=== PATIENT | female | born 1935 | race Caucasian/White ===

== ENCOUNTER 2016-07-29 00:33 | Day surgery (SDC) | payer MEDICARE ==
[~2016-07-29] VITALS: Ht 165.1 cm; Wt 78.0 kg
[~2016-07-29 00:33] MED LIST: DULO20CA18 PO; LEVO75TA4 PO; MULT-1018 PO; PANT40TA2 PO; TAMS0.4C98 PO
[2016-07-29] MEDS ORDERED: fentaNYL-PF 50 mCg/mL 2 mL Inj IVPUSH PRN (06:00)
[2016-07-29] MEDS ORDERED: Sodium Chloride LOK Flush 10 mL Syringe IV PRN (06:00)
[2016-07-29 09:21] VITALS: BP 146/75; PULSE 69; RESP 16; O2SAT 96
[2016-07-29] MEDS ORDERED: GUAI473S22 PO (09:23)
[2016-07-29] MEDS: 0.9% Sodium Chloride 1,000 ML IV SCH ×2 (09:36→09:57)
[2016-07-29 10:04] VITALS: BP 142/74; PULSE 65; RESP 14; O2SAT 95
[2016-07-29 10:14] VITALS: BP 148/72; PULSE 68; RESP 14; O2SAT 96
[2016-07-29 10:23] VITALS: BP 160/76; PULSE 64; RESP 14; O2SAT 97
--- NOTE | 2016-07-30 06:38 | ENDO ---
[address] [address] ENDOSCOPY PROCEDURE PATIENT: JOHN CHANG : 1935 MR#: [id number] ADMIT: 07/29/2016 JOB ID: [id number] DATE OF SERVICE: 07/29/2016 OPERATION: Esophagogastroduodenoscopy with biopsy. PREOPERATIVE DIAGNOSIS(ES): Gastroesophageal reflux disease. POSTOPERATIVE DIAGNOSIS(ES): Mild nonerosive gastritis. ANESTHESIA: Fentanyl 25 mcg and Versed 1.5 mg IV administered. COMPLICATIONS: None. BLOOD LOSS: Minimal. DESCRIPTION OF PROCEDURE: After risks and benefits were explained to the patient, informed consent was obtained. After anesthesia was administered, upper endoscope was inserted into the mouth, intubated into the esophagus, stomach, second portion of duodenum, and mucosa carefully examined. After the procedure was done, the scope was withdrawn and procedure terminated. FINDINGS: Upon inspection of esophagus, esophagus was normal without masses, ulcers, or lesions. Z-line located at 40 cm from incisors. Upon entering the stomach, there was mild nonerosive gastritis seen. No masses or ulcers were seen. Retroflexion was normal. Duodenal bulb, first and second portion were normal. Biopsies taken in antrum and body of the stomach and distal esophagus. IMPRESSIONS: Mild nonerosive gastritis. RECOMMENDATIONS: Await pathology results. Follow up in GI clinic as needed.
--- NOTE | 2016-08-01 10:34 | PATH ---
SURGICAL PATHOLOGY Attending Physician:Doug Staley MD CASE STATUS: Signed Out PATIENT NAME: Tahmina CHANG PID: [id number] : 1935 DATE COLLECTED:07/29/2016 16:12 SPECIMEN: 1: Stomach, Antrum, Biopsy 2: Gastric, Biopsy 3: Esophagus, Biopsy CLINICAL HISTORY: 1. ANTRUM BIOPSY 2. GASTRIC BODY BIOPSY 3. DISTAL ESOPHAGUS BIOPSY FINAL DIAGNOSIS: 1.ANTRUM BIOPSY: MILD CHRONIC GASTRITIS INVOLVING ANTRAL MUCOSA. Negative for evidence of Helicobacter. Negative for intestinal metaplasia. Negative for dysplasia and malignancy. 2.GASTRIC BODY BIOPSY: MILD CHRONIC GASTRITIS INVOLVING FUNDIC MUCOSA. Negative for evidence of Helicobacter. Negative for intestinal metaplasia. Negative for dysplasia and malignancy. 3.DISTAL ESOPHAGUS BIOPSY: FRAGMENTS OF SQUAMOUS EPITHELIUM, NEGATIVE FOR ATYPIA. No gastric-type epithelium identified. Negative for intraepithelial eosinophils. ICD10 code K29.70 GROSS DESCRIPTION: The specimen is received in three formalin filled containers labeled with the patient's name. 1). The specimen is sublabeled "antrum" and consists of a 0.3 x 0.3 x 0.2 CM portion of tissue which is entirely submitted in cassette 1A. 2). The specimen is sublabeled "gastric body" and consists of 2 portions of tissue which aggregate to 0.3 x 0.3 x 0.2 CM. The specimen is entirely submitted in cassette 2A. 3). The specimen is sublabeled "distal esophagus" and consists of 3 portions of tissue which aggregate to 0.3 x 0.3 x 0.2 CM. The specimen is entirely submitted in cassette 3A. 07/29/2016 [facility] MICRO DESCRIPTION: See diagnosis. ICD-9 CODES: CPT CODES: 1: 88151 2: 72805 3: 88411 Electronically Signed Out Kishan Gee MD [facility] [address], [place] [address] Technical component performed at [facility], [facility] [address], [address]
== END 2016-07-29 23:59 | disposition home or self-care (01) ==
LOC: END 00:33
PROVIDERS: ATTEND Internal Medicine Gastroenterology
DX: K29.50 Unspecified chronic gastritis without bleeding (principal); K21.9 Gastro-esophageal reflux disease without esophagitis; J45.909 Unspecified asthma, uncomplicated; M79.7 Fibromyalgia; M81.0 Age-related osteoporosis without current pathological fracture; M06.9 Rheumatoid arthritis, unspecified; E07.9 Disorder of thyroid, unspecified
CPT/HCPCS: 43239; G0500; J7030